=== PATIENT | male | born 1995 | race African-American/Black ===

== ENCOUNTER 2019-02-12 18:26 | Emergency (ER) | payer MEDICAID ==
[2019-02-12] MEDS ORDERED: DEXAMETHASONE SOD PHOS 4 MG/ML 5 ML VIAL IM ONE (19:00)
[2019-02-12] MEDS ORDERED: IPRATROPIUM BROMIDE 0.5 MG/2.5 ML NEB SOLUTION NEB ONE (19:00)
[2019-02-12] MEDS ORDERED: ALBUTEROL SULFATE 5 MG/ML 20 ML NEB SOLN [BULK] NEB ONE (19:00)
[2019-02-12] MEDS ORDERED: 0.9% SODIUM CHLORIDE 15 ML NEB SOLUTION NEB ONE (19:05)
[2019-02-12 20:22] VITALS: BP 150/83
== END 2019-02-12 20:30 | disposition home or self-care (01) ==
LOC: EMS 18:31
DX: J45.909 Unspecified asthma, uncomplicated (principal); F17.210 Nicotine dependence, cigarettes, uncomplicated; F12.90 Cannabis use, unspecified, uncomplicated; Z79.899 Other long term (current) drug therapy
CPT/HCPCS: 94644; 96372; 99285; J1100